=== PATIENT | male | born 1945 | race Caucasian/White ===

== ENCOUNTER 2018-05-24 10:29 | Emergency (ER) | payer OTHER ==
[~2018-05-24] VITALS: Ht 165.1 cm; Wt 59.0 kg
[~2018-05-24 10:29] MED LIST: GLIMEPIRIDE4 MG PO; GLUMETZA1000 MG PO; GLYSET PO
[2018-05-24] MEDS ORDERED: LISINOPRIL5 MG (10:38)
[2018-05-24] MEDS ORDERED: GABAPENTIN300 MG (10:38)
[2018-05-24] MEDS ORDERED: ASPIR 8181 MG (10:39)
[2018-05-24] MEDS ORDERED: LIPITOR20 MG (10:39)
[2018-05-24] MEDS ORDERED: LIPOCHOL CAPSU1 EACH (10:39)
[2018-05-24] MEDS ORDERED: SUPERIOR DIGES1 EACH (10:40)
[2018-05-24] MEDS ORDERED: LANTUS SOL100 UNIT/1 (10:41)
[2018-05-24] MEDS ORDERED: KETO10TA2 PO (15:05)
[2018-05-24] MEDS ORDERED: ZANTAC150 MG PO (15:05)
[2018-05-24] MEDS ORDERED: LEVSIN/SL0.125 MG PO (15:05)
[2018-05-24] MEDS ORDERED: CIPRO500 MG PO (15:05)
== END 2018-05-24 15:26 | disposition home or self-care (01) ==
LOC: ER 10:29
DX: K80.80 Other cholelithiasis without obstruction (principal); R10.11 Right upper quadrant pain

== ENCOUNTER 2018-06-20 05:59 | Day surgery (SDC) | payer OTHER ==
[~2018-06-20 05:59] MED LIST changes: +ASPIR 8181 MG; +CIPRO500 MG PO; +GABAPENTIN300 MG; +KETO10TA2 PO; +LANTUS SOL100 UNIT/1; +LEVSIN/SL0.125 MG PO; +LIPITOR20 MG; +LIPOCHOL CAPSU1 EACH; +LISINOPRIL5 MG; +SUPERIOR DIGES1 EACH; +ZANTAC150 MG PO
[2018-06-20] MEDS ORDERED: ULTRACET PO (11:45)
[2018-06-20] MEDS ORDERED: SURFAK240 M1 PO (11:46)
== END 2018-06-20 12:55 | disposition home or self-care (01) ==
LOC: CIR.AMB 05:59
DX: K80.10 Calculus of gallbladder with chronic cholecystitis without obstruction (principal)